=== PATIENT | female | born 2000 | race Caucasian/White ===

== ENCOUNTER 2024-06-18 10:46 | Emergency (ER) | payer BC, SELFPAY ==
[2024-06-18 10:59] VITALS: BP 130/83
[2024-06-18 11:29] LABS: % Basophils 0.3 % (0-2); % Eosinophils 0.6 % (0-6); % Immature Granulocytes 0.5 % (0-0.5); % Lymphocytes 8.7 % (20.5-51.1); % Monocytes 4.2 % (1.7-9.3); % Neutrophils 85.7 % (42.2-75.2); Absolute Eosinophils 0.1 10^3/uL (0-0.7); Absolute Immature Granulocytes 0.1 10^3/uL (0-0.05); Absolute Monocytes 0.5 10^3/uL (0.1-0.6); Absolute Neutrophils 10.3 10^3/uL (1.4-6.5); Hematocrit 42.8 % (37.0-47.0); Hemoglobin 14.8 g/dL (12.0-16.0); Mean Corp Hgb Conc. 34.6 g/dL (33.0-37.0); Mean Corpuscular Hgb 28.7 pg (27.0-31.0); Mean Corpuscular Volume 83.1 fL (81.0-99.0); Mean Platelet Volume 9.9 fL (7.4-10.4); Nucleated Red Blood Cells % 0 %; Platelet Count 350 10^3/uL (130-400); Red Blood Cell Count 5.15 10^6/uL (4.20-5.40); Red Cell Dist. Width 13.2 % (11.5-14.5)
[2024-06-18 11:31] LABS: HCG, Serum Qualitative Screen Negative
[2024-06-18 11:38] LABS: ALT (SGPT) 20 U/L (0-35); AST (SGOT) 26 U/L (14-36); Albumin 5.5 g/dl (3.5-5.0); Alkaline Phosphatase 66 U/L (38-126); Blood Urea Nitrogen 9 mg/dl (7-17); Calcium 10.2 mg/dl (8.4-10.2); Carbon Dioxide 21 mmol/L (22-30); Chloride 100 mmol/L (98-107); Glucose 93 mg/dl (70-99); Potassium 4.4 mmol/L (3.5-5.1); Sodium 136 mmol/L (135-145); Total Bilirubin 1.1 mg/dl (0.2-1.3); Total Protein 8.4 g/dl (6.3-8.2); eGFR > 60.00
[2024-06-18] MEDS: NSS 1000 IV (12:36)
[2024-06-18] MEDS: ZOFRAN 4 MG IV ×2 (12:37→15:12)
[2024-06-18] MEDS: PROTONIX IV 40 MG IV (12:37)
[2024-06-18 12:42] VITALS: BMI 28.8
[2024-06-18 12:47] VITALS: BP 102/68
[2024-06-18 13:00] VITALS: BP 105/58
[2024-06-18] MEDS: TORADOL 15 MG IV (13:35)
--- NOTE | 2024-06-18 13:41 | ED.GENMED ---
History of Present Illness
General
Chief Complaint: Abdominal Symptoms
Source: patient
Exam Limitations: none
Time Seen by Provider: 06/18/24 12:33
Nursing documentation reviewed up to this point in time: agreed with
History of Present Illness
History of Present Illness:
Patient presents to ED secondary to persistent nausea, vomiting, and abdominal discomfort since 11 PM last night. Patient reports having had fried chicken for dinner around 8 PM. In addition, patient reports taking Zepbound at 9 PM for the first
time as well. Denies diarrhea. Denies fever or chills. Denies previous history of similar symptoms. Patient family who ate similar dinner, are not experiencing any symptoms.
Review of Systems
Review of Systems
Allergies reviewed?: Yes
All Other Systems: ROS reviewed and negative except as documented in HPI and ROS
Constitutional: Reports no symptoms
Respiratory: Reports no symptoms
Cardiac: Reports no symptoms
ABD/GI: Reports no symptoms
Musculoskeletal: Reports no symptoms
Skin: Reports no symptoms
Neurological: Reports no symptoms
Phy Exam
Physical Exam
Physical Exam:
Physical Exam
General: mild distress, not acutely ill. afebrile
Head: nc/at. eomi
Neck: supple. normal range of motion.
Heart: s1/s2 regular rate and rhythm, no murmur.
Lungs: no acute respiratory distress. clear bilaterally
Abdomen: normal bowel sounds. mild epigastric/RUQ tenderness to palpation.
Neuro: alert and oriented x 3. no focal neurological deficits
Skin: no rash
Psychiatric: well kept. interactive and cooperative
Extremities: no edema. no calf tenderness.
Course
Orders/Labs/Results
Orders:
Orders
06/18/24 11:03
Test Result ONCE
06/18/24 11:06
Complete Blood Count/With Diff Urgent
Comprehensive Metabolic Panel Urgent
HCG, Serum Qualitative Screen Urgent
Lipase Urgent
06/18/24 12:33
0.9% Sodium Chloride 1000 ml [Nss] 1,000 ml IV BOLUS
Ondansetron Injectable [Zofran] 4 mg IV NOW STA
Pantoprazole [Protonix IV] 40 mg IV NOW STA
06/18/24 13:04
Ketorolac [Toradol] 15 mg IV NOW STA
US Abdomen Complete/Upper Urgent
Comment:
Reason For Exam: RUQ/epigastric tenderness
06/18/24 14:34
Add On- LAB Urgent
Tests Added?: lipase
Lactated Ringers [Lr] 500 ml IV BOLUS
06/18/24 15:09
Dicyclomine [Bentyl] 20 mg PO NOW STA
Ondansetron Injectable [Zofran] 4 mg .ROUTE .STK-MED ONE
Ondansetron Injectable [Zofran] 4 mg IV NOW STA
06/18/24 15:10
Dicyclomine [Bentyl] 20 mg .ROUTE .STK-MED ONE
Abnormal Lab Results
06/18/24
11:06
WBC 12.0 H 10^3/uL
(4.8-10.8)
Abs Immat Gran (auto) 0.1 H 10^3/uL
(0-0.05)
Absolute Neuts (auto) 10.3 H 10^3/uL
(1.4-6.5)
Absolute Lymphs (auto) 1.0 L 10^3/uL
(1.2-3.4)
Neutrophils % 85.7 H %
(42.2-75.2)
Lymphocytes % 8.7 L %
(20.5-51.1)
Carbon Dioxide 21 L mmol/L
(22-30)
Total Protein 8.4 H g/dl
(6.3-8.2)
Albumin 5.5 H g/dl
(3.5-5.0)
06/18/24 11:06
06/18/24 11:06
Vital Signs
Initial and Last Documented VS:
Initial Vital Signs
Temp Pulse Resp BP Pulse Ox
98.8 F 94 16 130/83 97
06/18/24 10:59 06/18/24 10:59 06/18/24 10:59 06/18/24 10:59 06/18/24 10:59
Last Documented Vital Signs
Temp Pulse Resp BP Pulse Ox
98.8 F 94 16 97/66 99
06/18/24 10:59 06/18/24 10:59 06/18/24 10:59 06/18/24 15:00 06/18/24 15:45
MDM/Problems Addressed
MDM/Problems Addressed:
Patient without any further vomiting episodes in ED after treatment, along with subjective improvement in symptoms. Mild leukocytosis noted, likely reactive. Patient presenting symptoms likely secondary to food reaction versus medication reaction
versus gastritis versus less likely biliary colic. Pt feels comfortable going home at this time. Will f/u with PCP for reevaluation or return to ED with worsening symptoms. Patient otherwise is hemodynamically stable and nontoxic-appearing, at time
of discharge, to the care of her mother.
*Critical Care Note
Total Time (30-74mins, 75-104mins- exclusive of procedures): Not Applicable
ED Attending Note
-
Portions of this chart may have been created with voice recognition software.� Occasional wrong word or��sound alike� substitutions may have occurred due to the inherent limitations of voice recognition software.
Discharge Plan
Departure
Patient Disposition: Home (Routine Discharge)
Date of Disposition: 06/18/24
Time of Disposition: 16:06
Patient with high blood pressure during this ER visit?: Yes
Condition: Good
Discharge Problem:
Nausea & vomiting
Instructions: Nausea and Vomiting, Adult (DC)
Prescriptions:
New
ondansetron 4 mg Tablet,Disintegrating
4 mg PO TIDPRN PRN (Reason: nausea/vomiting) Qty: 12 0RF
dicyclomine 20 mg tablet
20 mg PO Q8HPRN PRN (Reason: abdominal pain) Qty: 14 0RF
Referrals:
Sen Gleason DO [Family Provider] -
Stand Alone Forms: Back to School
Activity Restrictions/Additional Instructions:
As discussed, please follow-up with your primary care physician with any further concerns. Please return to ED with worsening symptoms, i.e. fever/worsening pain/vomiting. Your prescriptions have been sent electronically to [facility] pharmacy in
[place].
Interventions
Interventions:
*Risk Screen - Suicide Last Done: 06/18/24 10:59
*General Assessment Last Done: 06/18/24 12:44
*Neglect/Abuse Screening Last Done: 06/18/24 12:44
*ED- Fall Risk Assessment Last Done: 06/18/24 14:24
*ED COVID-19 Vaccine History Last Done: 06/18/24 12:43
*Nursing Disposition Last Done: 06/18/24 16:19
TB-Nyxmgb-Zhresznwif Assessment Last Done: 06/18/24 14:00
Discharge Date and Time
Discharge Date/Time: 06/18/24 16:20
Print Language: UGANDAN
[2024-06-18 13:51] VITALS: BP 104/61
[2024-06-18 14:03] VITALS: BP 111/61
[2024-06-18] MEDS: LR 500 IV (14:45)
[2024-06-18 15:00] VITALS: BP 97/66
[2024-06-18] MEDS: BENTYL 20 MG PO (15:12)
[2024-06-18 15:24] LABS: Lipase 40 U/L (23-300)
== END 2024-06-18 16:20 | disposition home or self-care (01) ==
LOC: EMR 10:46
PROVIDERS: Emergency Medicine; EMERGENCY PHYSICIAN Emergency Medicine; FAMILY PHYSICIAN Family Medicine
DX: R11.2 Nausea with vomiting, unspecified (principal)
CPT/HCPCS: 99284; 96374; 96375 ×3; 96361 ×2; 76700; 80053; 83690; 84703; 85025